=== PATIENT | male | born 1995 ===

== ENCOUNTER 2023-09-09 02:22 | Inpatient (IN) | payer MEDICAID, SELFPAY ==
[2023-09-09 02:44] VITALS: BMI 24.8
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
[2023-09-09 08:39] VITALS: BP 108/53; PULSE 75; RESP 18; TEMP 37.3; O2SAT 98
[2023-09-09] MEDS: Benztropine Mesylate 1 MG TABLET PO ×2 (09:19→19:56)
--- NOTE | 2023-09-09 11:40 | PC.NURSE ---
Patient declines to sign all legals.
[2023-09-09] MEDS: hydrOXYzine HCL 25 MG TABLET PO (14:07)
[2023-09-09] MEDS: chlorproMAZINE HCl 100 MG TABLET PO (14:37)
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
[2023-09-09] MEDS: LORazepam 1 MG TABLET 2 MG PO (16:09)
[2023-09-09] MEDS: diphenhydrAMINE HCL 25 MG CAPSULE 50 MG PO (16:09)
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
[2023-09-09 18:00] VITALS: RESP 16
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
--- NOTE | 2023-09-09 18:49 | PC.NURSE ---
[facility] needed verification of the date/time of patient's last dose of Clozaril 275 mg po. This play writer checked the chart and verified the last dose of Clozaril 275 mg po given 09/07/23 at 2321. Verified with a second RN, Joshua Moore; pharmacy notified via telephone.
[2023-09-09] MEDS: Topiramate 100 MG TABLET 250 MG PO (19:54)
--- NOTE | 2023-09-09 22:44 | PC.NURSE ---
Patient continued to be irritable and edgy off and on during the shift. He is demanding and makes frequent requests.
[2023-09-10 08:06] LABS: MANUAL DIFF FLAG NO
[2023-09-10 08:10] LABS: Basophils Absolute Auto 0.1 X10*3/uL (0.0-0.2); Eosinophils Absolute Auto 0.2 X10*3/uL (0.0-0.4); Eosinophils Percent Auto 4.4 % (0-4); Hematocrit 40.8 % (42.0-52.0); Hemoglobin 13.9 g/dl (14.0-18.0); Imm Gran Abs Auto 0.01 X10*3/uL (0.00-0.03); Imm Gran Pct Auto 0.2 % (0.0-0.4); Lymphocytes Absolute Auto 2.1 X10*3/uL (1.2-4.9); Lymphocytes Percent Auto 38.5 % (20-40); Mean Corpuscular HGB Conc 34.1 g/dl (31.0-36.0); Mean Corpuscular Hemoglobin 30.1 pg (27.0-33.0); Mean Corpuscular Volume 88.3 fL (80.0-98.0); Mean Platelet Volume 9.2 fL (9.4-12.4); Monocytes Absolute Auto 0.7 X10*3/uL (0.1-1.2); Monocytes Percent Auto 11.8 % (2-11); Neutrophils Absolute Auto 2.4 x10*3/uL (2.0-8.3); Neutrophils Percent Auto 43.1 % (45-73); Platelet Count 261 X10*3/uL (160-400); Red Blood Count 4.62 X10*6/uL (4.60-5.80); Red Cell Distribution Width 12.8 % (11.0-16.0); White Blood Count 5.5 X10*3/uL (4.8-10.8)
[2023-09-10 08:37] LABS: Estimated Average Glucose 103 mg/dL; Hemoglobin A1c % 5.2 % (<6.0)
[2023-09-10 08:49] LABS: Alanine Aminotransferase 19 U/L (0-40); Albumin Level 3.6 g/dL (3.5-5.0); Alkaline Phosphatase 46 U/L (39-117); Anion Gap 9 (12-20); Aspartate Amino Transferase 18 U/L (5-37); Bilirubin Total 0.4 mg/dL (0.0-1.0); Blood Urea Nitrogen 24 mg/dL (9-16); Carbon Dioxide 20 mmol/L (22-29); Chloride 112 mmol/L (96-108); Cholesterol 137 mg/dL (<200); Creatinine Clr Calc Pharmacy 124.4; Estimated Glomerular Filt Rate > 60; Glucose Random 93 mg/dL (60-115); HDL Cholesterol 54 mg/dL (>40); LDL Cholesterol Calculated 76 mg/dL (<100); Potassium 3.7 mmol/L (3.3-5.1); Sodium 137 mmol/L (135-145); Triglycerides 37 mg/dL (<150)
[2023-09-10 08:55] VITALS: BP 121/61; PULSE 78; RESP 16; TEMP 37.1; O2SAT 98
[2023-09-10] MEDS: Cholecalciferol (Vitamin D3) 25 MCG TABLET 50 MCG PO (08:57)
[2023-09-10] MEDS: Topiramate 25 MG TABLET 50 MG PO (08:57)
[2023-09-10] MEDS: Benztropine Mesylate 1 MG TABLET PO ×2 (08:57→18:46)
[2023-09-10 09:05] LABS: Thyroid Stimulating Hormone 0.57 uIU/mL (0.32-4.0)
[2023-09-10 09:20] LABS: Folate 4.4 ng/mL (> or = 4.0); Vitamin B12 537 pg/mL (200-900)
[2023-09-10] MEDS: chlorproMAZINE HCl 100 MG TABLET PO ×2 (14:58→18:46)
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
[2023-09-10] MEDS: hydrOXYzine HCL 25 MG TABLET PO (18:21)
[2023-09-10] MEDS: Topiramate 100 MG TABLET 250 MG PO (18:47)
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
[2023-09-11 06:00] VITALS: RESP 16
[2023-09-11] MEDS: Topiramate 25 MG TABLET 50 MG PO (08:00)
[2023-09-11] MEDS: Dextroamphetamine/Amphetamine XR 10 MG CAP.ER.24H 20 MG PO (08:45)
[2023-09-11] MEDS: Cholecalciferol (Vitamin D3) 25 MCG TABLET 50 MCG PO (08:45)
[2023-09-11] MEDS: Benztropine Mesylate 1 MG TABLET PO ×2 (08:45→19:12)
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
[2023-09-11] MEDS: chlorproMAZINE HCl 100 MG TABLET PO (17:04)
[2023-09-11] MEDS: hydrOXYzine HCL 25 MG TABLET PO (17:05)
[2023-09-11] MEDS: Topiramate 100 MG TABLET 250 MG PO (19:12)
[2023-09-12 08:00] VITALS: BP 98/54; PULSE 83; RESP 18; TEMP 36.8; O2SAT 97
[2023-09-12] MEDS: Benztropine Mesylate 1 MG TABLET PO ×2 (08:29→19:30)
[2023-09-12] MEDS: Topiramate 25 MG TABLET 50 MG PO (08:29)
[2023-09-12] MEDS: Cholecalciferol (Vitamin D3) 25 MCG TABLET 50 MCG PO (08:29)
[2023-09-12] MEDS: Dextroamphetamine/Amphetamine XR 10 MG CAP.ER.24H 20 MG PO (08:35)
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
[2023-09-12] MEDS: chlorproMAZINE HCl 100 MG TABLET PO ×2 (13:45→20:58)
[2023-09-12] MEDS: Topiramate 100 MG TABLET 250 MG PO (19:30)
[2023-09-13] MEDS: chlorproMAZINE HCl 100 MG TABLET PO ×2 (06:49→20:44)
[2023-09-13] MEDS: Topiramate 25 MG TABLET 50 MG PO (08:08)
[2023-09-13] MEDS: Dextroamphetamine/Amphetamine XR 10 MG CAP.ER.24H 20 MG PO (08:08)
[2023-09-13] MEDS: Benztropine Mesylate 1 MG TABLET PO ×2 (08:08→20:02)
[2023-09-13 09:02] VITALS: RESP 18
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
[2023-09-13 18:00] VITALS: RESP 18
[2023-09-13] MEDS: Topiramate 100 MG TABLET 250 MG PO (20:02)
[2023-09-13] MEDS: diphenhydrAMINE HCL 25 MG CAPSULE 50 MG PO (20:44)
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
[2023-09-13] MEDS: OLANZapine 5 MG TABLET PO (22:11)
[2023-09-14] MEDS: Benztropine Mesylate 1 MG TABLET PO (08:01)
[2023-09-14] MEDS: Dextroamphetamine/Amphetamine XR 10 MG CAP.ER.24H 20 MG PO (08:01)
[2023-09-14] MEDS: Cholecalciferol (Vitamin D3) 25 MCG TABLET 50 MCG PO (08:01)
[2023-09-14] MEDS: Topiramate 25 MG TABLET 50 MG PO (08:01)
[2023-09-14 08:15] VITALS: BP 115/71; PULSE 98; RESP 16; TEMP 36.5; O2SAT 100
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
== END 2023-09-14 11:30 | disposition other institution (70) | DRG 750 ==
PROVIDERS: Admitting Provider Psychiatry & Neurology Psychiatry; Visit Provider Clinical Nurse Specialist Psychiatric/Mental Health, Adult
DX: F20.9 Schizophrenia, unspecified (principal); R45.850 Homicidal ideations; F43.10 Post-traumatic stress disorder, unspecified; F14.10 Cocaine abuse, uncomplicated; Z91.148 Patient's other noncompliance with medication regimen for other reason; Z79.899 Other long term (current) drug therapy
CPT/HCPCS: 36415; 80053; 80061; 82607; 82746; 83036; 84443; 85025; 92950

== ENCOUNTER → 2023-09-09 02:22 | Outpatient (BNV) | payer OTHER, SELFPAY | PROVIDERS: Admitting Provider Psychiatry & Neurology Psychiatry; Visit Provider Student in an Organized Health Care Education/Training Program | DX: Z02.2 Encounter for examination for admission to residential institution (principal) | CPT/HCPCS: 99429 ==

== ENCOUNTER → 2023-09-09 02:22 | Outpatient (BNV) | payer OTHER, SELFPAY | PROVIDERS: Admitting Provider Psychiatry & Neurology Psychiatry; Visit Provider Clinical Nurse Specialist Psychiatric/Mental Health, Adult | DX: F20.9 Schizophrenia, unspecified (principal); F14.10 Cocaine abuse, uncomplicated | CPT/HCPCS: 90792; 99231; 99232 ==